=== PATIENT | female | born 1960 | race African-American/Black ===

== ENCOUNTER 2016-07-04 09:54 | Emergency (ER) | payer BC ==
[~2016-07-04] VITALS: Ht 167.6 cm; Wt 122.0 kg
[~2016-07-04 09:54] MED LIST: ERYTHROMYC1 APPLICAT LEFT EYE; FLONASE16 G1 BOTH NARES; MUCUS ER600 MG PO
[2016-07-04 10:52] LABS: HEMATOCRIT 34.2 % (36.0-46.0); MCH 29.4 PG (29.0-34.0); MCHC 32.2 G/DL (30.0-36.0); MCV 91.4 FL (83-99); MEAN PLAT.VOLUME 10.9 uM^3 (9.5-12.4); PLATELET COUNT 195 K/uL (156-360); RBC DIS.WIDTH-SD 45.3 % (39-53); RED BLOOD COUNT 3.74 M/uL (3.80-5.20); WHITE BLOOD COUNT 3.1 K/uL (4.1-10.2)
[2016-07-04 11:00] LABS: CHLORIDE 105 mEq/L (99-109); POTASSIUM 3.8 mEq/L (3.7-5.4); SODIUM 139 mEq/L (136-147)
[2016-07-04 11:02] LABS: GLUCOSE 79 mg/dL (70-99)
[2016-07-04 11:03] LABS: ANION GAP 7 MEQ/L (2-14)
[2016-07-04 11:06] LABS: GFR ESTIMATE (CALCULATED) > 59 mL/min/
[2016-07-04 11:07] LABS: UREA NITROGEN (BUN) 7 mg/dL (9-23)
[2016-07-04 11:12] LABS: TROP-I INTERPRETATION NEGATIVE; TROPONIN-I 0.01 ng/mL (0.0-0.30)
[2016-07-04] MEDS ORDERED: LAMISIL250 MG PO (11:32)
[2016-07-04] MEDS ORDERED: HYDROCHLOROTHIA25 MG PO (11:32)
[2016-07-04 12:15] LABS: ADD MIUA? YES; BILIRUBIN NEGATIVE; BLOOD NEGATIVE; COLOR YELLOW ((YELLOW)); GLUCOSE (STRIP) NEGATIVE; KETONES NEGATIVE; LEUKOCYTES SMALL; NITRITE NEGATIVE; PROTEIN (STRIP) NEGATIVE; SPECIFIC GRAVITY 1.017 (1.000-1.030)
[2016-07-04 12:25] LABS: BACTERIA RARE /HPF; EPITHELIAL CELLS 1+ /HPF; MUCUS TRACE /LPF; RED BLOOD CELLS 0-5 /HPF (0-5); WHITE BLOOD CELLS 0-5 /HPF (0-5)
[2016-07-04 13:01] LABS: INFLUENZA A VIRAL ANTIGEN POSITIVE; INFLUENZA B VIRAL ANTIGEN NEGATIVE
[2016-07-04 13:25] LABS: TOTAL BILIRUBIN 0.5 mg/dL (0.0-1.0)
[2016-07-04 13:26] LABS: ALKALINE PHOSPHATASE 131 IU/L (3-129)
[2016-07-04 13:29] LABS: DIRECT BILIRUBIN 0.2 mg/dL (0.0-0.3)
[2016-07-04 13:30] LABS: LIPASE 10 U/L (1.0-51.0)
[2016-07-04] MEDS ORDERED: TAMIFLU75 MG PO (13:37)
[2016-07-04] MEDS ORDERED: NAPROSYN500 MG PO (13:38)
[2016-07-04 13:41] LABS: TROP-I INTERPRETATION NEGATIVE; TROPONIN-I < 0.01 ng/mL (0.0-0.30)
[2016-07-04 13:54] VITALS: BP 131/58
== END 2016-07-04 13:57 | disposition home or self-care (01) ==
LOC: EME 09:54
PROVIDERS: Nurse Practitioner Family
DX: J10.1 Influenza due to other identified influenza virus with other respiratory manifestations (principal); I10 Essential (primary) hypertension
CPT/HCPCS: 71020; 80048; 80076; 81003; 83690; 84484; 85027; 87502; 93005; 94640; 99281; 99284

== ENCOUNTER 2016-07-07 10:49 | Emergency (ER) | payer BC ==
[~2016-07-07] VITALS: Ht 167.6 cm; Wt 119.9 kg
[~2016-07-07 10:49] MED LIST changes: +HYDROCHLOROTHIA25 MG PO; +LAMISIL250 MG PO; +NAPROSYN500 MG PO; +TAMIFLU75 MG PO
[2016-07-07 11:14] VITALS: BP 137/68
[2016-07-07 12:15] LABS: CHLORIDE 102 mEq/L (99-109); POTASSIUM 3.4 mEq/L (3.7-5.4); SODIUM 140 mEq/L (136-147)
[2016-07-07 12:17] LABS: GLUCOSE 94 mg/dL (70-99)
[2016-07-07 12:19] LABS: ANION GAP 12 MEQ/L (2-14)
[2016-07-07 12:21] LABS: GFR ESTIMATE (CALCULATED) > 59 mL/min/
[2016-07-07 12:22] LABS: UREA NITROGEN (BUN) 8 mg/dL (9-23)
[2016-07-07 12:29] LABS: HEMATOCRIT 35.9 % (36.0-46.0); MCH 28.9 PG (29.0-34.0); MCHC 32.3 G/DL (30.0-36.0); MCV 89.5 FL (83-99); MEAN PLAT.VOLUME 10.5 uM^3 (9.5-12.4); PLATELET COUNT 215 K/uL (156-360); RBC DIS.WIDTH-CV 13.7 % (11.8-14.6); RED BLOOD COUNT 4.01 M/uL (3.80-5.20)
[2016-07-07 12:30] LABS: WHITE BLOOD COUNT 4.5 K/uL (4.1-10.2)
[2016-07-07] MEDS ORDERED: VENTOLIN HFA18 GM IH (14:21)
[2016-07-07] MEDS ORDERED: TESSALON PERLE100 MG PO (14:21)
[2016-07-07] MEDS ORDERED: PREDNISONE20 MG PO (14:21)
== END 2016-07-07 14:35 | disposition home or self-care (01) ==
LOC: EME 10:49
DX: B34.9 Viral infection, unspecified (principal); J20.9 Acute bronchitis, unspecified; E87.6 Hypokalemia; I10 Essential (primary) hypertension
CPT/HCPCS: 71020; 80048; 85027; 94640; 99281; 99284; J7512

== ENCOUNTER 2017-06-04 09:21 | Emergency (ER) | payer BC ==
[~2017-06-04] VITALS: Ht 167.6 cm; Wt 123.4 kg
[~2017-06-04 09:21] MED LIST changes: +PREDNISONE20 MG PO; +TESSALON PERLE100 MG PO; +VENTOLIN HFA18 GM IH
[2017-06-04] MEDS ORDERED: PERCOCET 5/31 TABLET PO (13:38)
[2017-06-04 13:50] VITALS: BP 132/70
== END 2017-06-04 14:01 | disposition home or self-care (01) ==
LOC: EME 09:21
DX: M50.322 Other cervical disc degeneration at C5-C6 level (principal); M25.512 Pain in left shoulder; I10 Essential (primary) hypertension
CPT/HCPCS: 72141; 93005; 99281; 99284